=== PATIENT | female | born 1955 | race Caucasian/White ===

== ENCOUNTER → 2017-11-06 | Outpatient (CLI) | payer OTHER ==
[~2017-11-06] MED LIST: ASPI-515 PO; CEFA2PIG IV; MIRT15TA PO; OXYC10TA6 PO; OXYC1TAB7 PO; SULF1TAB24 PO
== END ==
LOC: PETCFH 09:24
PROVIDERS: ATTEND Specialist
DX: C51.9 Malignant neoplasm of vulva, unspecified (principal); Z85.3 Personal history of malignant neoplasm of breast
CPT/HCPCS: 78815; A9552

== ENCOUNTER → 2017-11-22 | Outpatient (CLI) | payer OTHER | END | disposition home or self-care (01) | LOC: WOUND 14:30 | PROVIDERS: ATTEND Family Medicine | DX: Z01.818 Encounter for other preprocedural examination (principal); I25.10 Atherosclerotic heart disease of native coronary artery without angina pectoris; F12.90 Cannabis use, unspecified, uncomplicated; F17.200 Nicotine dependence, unspecified, uncomplicated; F19.90 Other psychoactive substance use, unspecified, uncomplicated; I11.0 Hypertensive heart disease with heart failure; I50.9 Heart failure, unspecified; Z85.3 Personal history of malignant neoplasm of breast; Z90.49 Acquired absence of other specified parts of digestive tract; Z96.642 Presence of left artificial hip joint | CPT/HCPCS: G0463; WOU0463 ==

== ENCOUNTER 2018-01-29 09:46 | Inpatient (IN) | payer OTHER ==
[~2018-01-29] VITALS: Ht 170.2 cm; Wt 56.1 kg
[2018-01-29] MEDS ORDERED: CIPR500T3 PO (10:28)
[2018-01-29] MEDS ORDERED: DIPH1TAB PO (10:28)
[2018-01-29] MEDS ORDERED: SODIUM CHLORIDE 0.9% 1,000ML IVBOLUS ONE (10:30)
[2018-01-29] MEDS ORDERED: SODIUM CHLORIDE FLUSH 10ML SYR IVF ONE (10:30)
[2018-01-29] MEDS ORDERED: HYDROmorphone PCA 30 MG/30 ML IV ONE (10:30)
[2018-01-29 10:42] LABS: BASOPHILS # (AUTO) 0.07 x10^3/uL (0-0.1); BASOPHILS % (AUTO) 1 % (0-1); EOSINOPHILS # (AUTO) 0.18 x10^3/uL (0-0.4); EOSINOPHILS % (AUTO) 2 % (1-7); LYMPHOCYTES # (AUTO) 1.27 x10^3/uL (1-3.4); LYMPHOCYTES % (AUTO) 16 % (22-44); MD NO; MEAN CORPUSCULAR HGB CONC 32.2 g/dL (32.4-35.8); MEAN CORPUSCULAR VOLUME 83.9 fL (80-100); MEAN PLATELET VOLUME 8.2 fL (7.4-10.4); MONOCYTES # (AUTO) 0.51 x10^3/uL (0.2-0.8); MONOCYTES % (AUTO) 6 % (2-9); NEUTROPHILS # (AUTO) 5.93 x10^3/uL (1.8-6.8); NEUTROPHILS % (AUTO) 75 % (42-75); PLATELET COUNT 420 x10^3/uL (130-400); RED BLOOD COUNT 4.45 x10^6/uL (3.82-5.3); RED CELL DISTRIBUTION WIDTH 17.5 % (9.6-15.2)
[2018-01-29 10:55] LABS: ALBUMIN 3.7 g/dL (3.4-5.0); ANION GAP 10 mmol/L (5-15); CALCIUM 9.4 mg/dL (8.5-10.1); CHLORIDE 106 mmol/L (98-107)
[2018-01-29 10:58] LABS: ALANINE AMINOTRANSFERASE 64 U/L (12-78); ALKALINE PHOSPHATASE 216 U/L (45-117); BILIRUBIN,TOTAL 0.6 mg/dL (0.2-1.0); CREATININE 1.18 mg/dL (0.55-1.02); TOTAL PROTEIN 8.2 g/dL (6.4-8.2)
[2018-01-29] MEDS ORDERED: LORazepam 2 MG/ML, 1ML ONE (11:16)
[2018-01-29] MEDS ORDERED: BENZOCAINE 20% SPRAY 0.5ML ONE ×3 (11:28→11:49)
[2018-01-29] MEDS ORDERED: LORazepam 2 MG/ML, 1ML IVPush ONE (11:30)
[2018-01-29 12:25] VITALS: BP 123/76
[2018-01-29] MEDS: SODIUM CHLORIDE 0.9% 1,000 ML IV SCH ×2 (13:41→22:07)
[2018-01-29] MEDS: CIPROFLOXACIN/PMX 400MG/200ML 200 ML IV SCH (14:31)
[2018-01-29 19:01] VITALS: BP 139/72
[2018-01-29] MEDS: MIRTAZAPINE 15 MG TABLET PO SCH ×2 (21:16→22:05)
[2018-01-29 23:59] VITALS: BP 153/71
[2018-01-30 01:03] VITALS: BP 162/81
[2018-01-30] MEDS: CIPROFLOXACIN/PMX 400MG/200ML 200 ML IV SCH (01:50)
[2018-01-30 09:28] VITALS: BP 151/77
[2018-01-30] MEDS: OXYcodone/APAP 10/325MG TABLET PO PRN ×3 (10:50→21:29)
[2018-01-30 13:42] VITALS: BP 112/70
[2018-01-30] MEDS: SODIUM CHLORIDE 0.9% 1,000 ML IV SCH ×2 (13:47→15:15)
[2018-01-30] MEDS: POTASSIUM CHLORIDE 20 MEQ TAB.ER.PRT PO SCH (17:15)
[2018-01-30] MEDS: CALCIUM CARBONATE 500 MG TAB.CHEW PO PRN (17:28)
[2018-01-30 19:10] VITALS: BP 124/65
[2018-01-30] MEDS: CIPROFLOXACIN 500 MG TABLET PO SCH (21:28)
[2018-01-31] MEDS: MIRTAZAPINE 15 MG TABLET PO SCH (00:14)
[2018-01-31 00:21] VITALS: BP 136/69
[2018-01-31] MEDS: OXYcodone/APAP 10/325MG TABLET PO PRN ×3 (01:16→09:16)
[2018-01-31] MEDS: CALCIUM CARBONATE 500 MG TAB.CHEW PO PRN ×2 (01:16→09:20)
[2018-01-31] MEDS: SODIUM CHLORIDE 0.9% 1,000 ML IV SCH ×2 (01:16→08:00)
[2018-01-31 07:40] VITALS: BP 122/65
[2018-01-31 07:52] LABS: ANION GAP 9 mmol/L (5-15); CALCIUM 7.6 mg/dL (8.5-10.1); CHLORIDE 115 mmol/L (98-107); CREATININE 0.67 mg/dL (0.55-1.02)
[2018-01-31 08:04] LABS: BASOPHILS # (AUTO) 0.02 x10^3/uL (0-0.1); BASOPHILS % (AUTO) 0 % (0-1); EOSINOPHILS # (AUTO) 0.61 x10^3/uL (0-0.4); EOSINOPHILS % (AUTO) 11 % (1-7); LYMPHOCYTES # (AUTO) 1.53 x10^3/uL (1-3.4); LYMPHOCYTES % (AUTO) 28 % (22-44); MD NO; MEAN CORPUSCULAR HEMOGLOBIN 27.1 pg (27.0-34.8); MEAN CORPUSCULAR VOLUME 84.7 fL (80-100); MEAN PLATELET VOLUME 7.9 fL (7.4-10.4); MONOCYTES # (AUTO) 0.52 x10^3/uL (0.2-0.8); MONOCYTES % (AUTO) 9 % (2-9); NEUTROPHILS # (AUTO) 2.86 x10^3/uL (1.8-6.8); NEUTROPHILS % (AUTO) 52 % (42-75); PLATELET COUNT 292 x10^3/uL (130-400); RED BLOOD COUNT 3.22 x10^6/uL (3.82-5.3); RED CELL DISTRIBUTION WIDTH 17.4 % (9.6-15.2)
[2018-01-31] MEDS: CIPROFLOXACIN 500 MG TABLET PO SCH (08:28)
[2018-01-31] MEDS: POTASSIUM CHLORIDE 20 MEQ TAB.ER.PRT PO SCH (08:28)
== END 2018-01-31 09:50 | disposition home or self-care (01) | DRG 389 ==
LOC: ED 11:48 → OBSVTOIN 11:49 → EDIP 11:49 → ED 11:52 → 4NOR 12:34 → INTOOBSV 01-30 08:49 → OBSVTOIN 01-30 08:49 → DCLOUNGE 01-31 09:40
PROVIDERS: ADMIT Specialist; ATTEND Specialist
DX: K56.600 Partial intestinal obstruction, unspecified as to cause (principal); N39.0 Urinary tract infection, site not specified; N17.9 Acute kidney failure, unspecified; E87.6 Hypokalemia; F17.200 Nicotine dependence, unspecified, uncomplicated; Z85.3 Personal history of malignant neoplasm of breast; Z87.442 Personal history of urinary calculi; Z90.710 Acquired absence of both cervix and uterus; Z96.649 Presence of unspecified artificial hip joint; Z88.6 Allergy status to analgesic agent; Z85.44 Personal history of malignant neoplasm of other female genital organs
CPT/HCPCS: 36415; 74021; 80048; 80053; 83605; 83690; 85025; 93005; 96361; 96374; 96375; J0744; J1170; J2270; G0378; J2060; J7030